=== PATIENT | female | born 1955 | race Caucasian/White ===

== ENCOUNTER 2019-01-23 19:57 | Emergency (ER) | payer OTHER ==
[~2019-01-23] VITALS: Ht 157.5 cm; Wt 77.1 kg
[2019-01-23 20:06] VITALS: BP 169/101
[2019-01-23] MEDS ORDERED: KEFLEX500 M1 PO (20:30)
== END 2019-01-23 20:47 | disposition home or self-care (01) ==
LOC: M.ERS 19:57
DX: S71.112A Laceration without foreign body, left thigh, initial encounter (principal); W26.8XXA Contact with other sharp object(s), not elsewhere classified, initial encounter; Y93.89 Activity, other specified; Y92.89 Other specified places as the place of occurrence of the external cause; Y99.8 Other external cause status